=== PATIENT | female | born 1960 | race Caucasian/White ===

== ENCOUNTER 2021-07-22 16:01 | Inpatient (IN) | payer MEDICAID, OTHER ==
[~2021-07-22] VITALS: Ht 175.3 cm; Wt 82.9 kg
[2021-07-22 16:55] LABS: Albumin 3.1 g/dL (3.4-5.0); Calcium 8.5 mg/dL (8.5-10.1); Potassium 3.6 mmol/L (3.5-5.1)
[2021-07-22 17:01] LABS: Bilirubin, Total 1.3 mg/dL (0.2-1.0); Total Protein 8.6 g/dL (6.4-8.2)
[2021-07-22 17:08] LABS: Eosinophils # (auto) 0 10 ^3/uL (0-0.8); Hemoglobin 15.9 g/dL (12.2-16.2); Monocytes # (auto) 0.5 10 ^3/uL (0-1.3)
[2021-07-22 17:09] LABS: Basophils # (auto) 0 10 ^3/uL (0-0.2); Basophils % (auto) 0.2 % (0.0-2.0); Hematocrit 46.4 % (36.0-46.0); Lymphocytes # (auto) 0.8 10 ^3/uL (0.4-5.4); Lymphocytes % (auto) 5.1 % (10.0-50.0); Mean Corpuscular Hemoglobin 34.8 pg (28.0-32.0); Mean Corpuscular Hgb Conc. 34.2 g/dL (32.0-36.0); Mean Corpuscular Volume 101.9 fL (80.0-100.0); Monocytes % (auto) 3.3 % (0.0-12.0); Neutrophils # (auto) 13.6 10 ^3/uL (1.6-8.6); Neutrophils % (auto) 91.4 % (37.0-80.0); Red Blood Cells 4.56 10^6/uL (4.0-5.20); Red Cell Distribution Width 15.2 % (11.8-14.3); White Blood Cell 14.9 10^3/uL (4.4-10.8)
[2021-07-22] MEDS ORDERED: cefTRIAXone 1GM/50ML D5W 50 ML IV ONE (18:00)
[2021-07-22] MEDS ORDERED: NITROGLYCERIN 0.4 MG SL TAB SL PRN (18:30)
[2021-07-22] MEDS ORDERED: MORPHINE SULFATE INJECTION 2 MG/ML SYRG IV PRN (18:30)
[2021-07-22] MEDS ORDERED: ASPirin 81 mg TAB PO ONE (18:45)
[2021-07-22] MEDS ORDERED: LACTULOSE 20Gm/30ML SOLN PO PRN (18:45)
[2021-07-22] MEDS ORDERED: traMADol HCL 50 MG TAB PO PRN (18:45)
[2021-07-22] MEDS ORDERED: ALBUTEROL SULF 2.5 MG/0.5ML(0.5%) NEB SOLN NEB PRN (18:45)
[2021-07-22 19:27] LABS: Amylase 11 U/L (25-115); Lipase 28 U/L (73-393)
[2021-07-22 19:42] LABS: CRP High Sensitivity > 19.0 mg/dL (< 0.3)
[2021-07-22] MEDS: SODIUM CHLORIDE 0.9% 1,000 ML IV SCH (20:46)
[2021-07-22] MEDS: ATORVASTATIN 20 MG TAB PO SCH (22:43)
[2021-07-22] MEDS: CLINDAMYCIN 600MG IV 50 ML IV SCH (22:43)
[2021-07-22] MEDS: ENOXAPARIN SOD 80 MG/0.8ML SYRINGE SC SCH (22:44)
[2021-07-22] MEDS: METOPROLOL TARTRATE 25 MG TAB PO SCH (22:44)
[2021-07-22] MEDS: ACETAMINOPHEN 500 MG TAB PO PRN (23:36)
[2021-07-22] MEDS: PROMETHAZINE HCL 25 MG/ML 1ML IV PRN (23:37)
[2021-07-23] MEDS: IPRATROPIUM BROM 0.5 MG/2.5ML INH SOL NEB SCH ×4 (01:39→18:44)
[2021-07-23] MEDS: ALBUTEROL SULF 2.5 MG/0.5ML(0.5%) NEB SOLN NEB SCH ×4 (01:39→19:05)
[2021-07-23 01:46] VITALS: BP 92/51
[2021-07-23] MEDS ORDERED: ALBUTEROL SULF 2.5 MG/0.5ML(0.5%) NEB SOLN NEB ONE (04:45)
[2021-07-23] MEDS ORDERED: IPRATROPIUM BROM 0.5 MG/2.5ML INH SOL NEB ONE (04:45)
[2021-07-23 06:51] LABS: Hemoglobin 14.5 g/dL (12.2-16.2)
[2021-07-23 06:53] LABS: Hematocrit 42.3 % (36.0-46.0); Mean Corpuscular Hemoglobin 35.4 pg (28.0-32.0); Mean Corpuscular Hgb Conc. 34.3 g/dL (32.0-36.0); Red Cell Distribution Width 14.9 % (11.8-14.3); White Blood Cell 9.7 10^3/uL (4.4-10.8)
[2021-07-23] MEDS: CLINDAMYCIN 600MG IV 50 ML IV SCH ×2 (06:55→14:47)
[2021-07-23 07:02] LABS: Basophils % (manual) 0 (0.0-2.0); Blast Cells 0; Eosinophils % (manual) 0 (0-7); Metamyelocytes % 0; Myelocytes % 0; Promyelocytes % 0; Reactive Lymphocytes 0
[2021-07-23 07:07] LABS: Potassium 3.4 mmol/L (3.5-5.1)
[2021-07-23] MEDS: ACETAMINOPHEN 500 MG TAB PO PRN (07:07)
[2021-07-23 07:18] LABS: Albumin 2.4 g/dL (3.4-5.0); BUN/Creatinine Ratio 16.8; Bilirubin, Total 0.8 mg/dL (0.2-1.0); Calcium 7.8 mg/dL (8.5-10.1); Total Protein 7.6 g/dL (6.4-8.2)
[2021-07-23 07:37] LABS: Band Neutrophils % (manual) 6; Lymphocytes % (manual) 7 (10.0-50.0); Monocytes % (manual) 5 (0-12)
[2021-07-23] MEDS: SODIUM CHLORIDE 0.9% 1,000 ML IV SCH ×2 (08:28→22:39)
[2021-07-23] MEDS: ASPirin 81 mg TAB PO SCH (11:08)
[2021-07-23] MEDS: METOPROLOL TARTRATE 25 MG TAB PO SCH ×2 (11:08→22:39)
[2021-07-23] MEDS: levoFLOXacin 500MG 100 ML IV SCH (11:08)
[2021-07-23] MEDS: ENOXAPARIN SOD 80 MG/0.8ML SYRINGE SC SCH ×2 (11:09→22:39)
[2021-07-23] MEDS: PANTOPRAZOLE 40 MG TAB PO SCH (11:09)
[2021-07-23] MEDS: NITROGLYCERIN 0.2MG/HR TOPICAL PATCH TD SCH (11:30)
[2021-07-23] MEDS ORDERED: LOPERAMIDE HCL 2 MG CAP PO ONE (16:15)
[2021-07-23] MEDS ORDERED: metroNIDAZOLE 500MG/100ML 100 ML IV ONE (16:30)
[2021-07-23] MEDS: metroNIDAZOLE 500MG/100ML 100 ML IV SCH (17:26)
[2021-07-23] MEDS ORDERED: methylPREDNISolone SOD SUCC 125 MG/2 ML VL IV ONE (17:30)
[2021-07-23] MEDS: diphenhdrAMINE HCL 50 MG/1 ML VL IV PRN (17:40)
[2021-07-23] MEDS ORDERED: IOHEXOL 350 MG/ML 100ML IJ ONE (17:57)
[2021-07-23] MEDS: ATORVASTATIN 20 MG TAB PO SCH (22:38)
[2021-07-24] MEDS: ALBUTEROL SULF 2.5 MG/0.5ML(0.5%) NEB SOLN NEB SCH ×5 (00:50→23:51)
[2021-07-24] MEDS: IPRATROPIUM BROM 0.5 MG/2.5ML INH SOL NEB SCH ×5 (00:50→23:51)
[2021-07-24] MEDS: metroNIDAZOLE 500MG/100ML 100 ML IV SCH ×3 (00:56→16:40)
[2021-07-24] MEDS: SODIUM CHLORIDE 0.9% 1,000 ML IV SCH ×3 (03:51→21:14)
[2021-07-24] MEDS: METOPROLOL TARTRATE 25 MG TAB PO SCH ×2 (09:48→21:13)
[2021-07-24] MEDS: NITROGLYCERIN 0.2MG/HR TOPICAL PATCH TD SCH (09:49)
[2021-07-24] MEDS: PANTOPRAZOLE 40 MG TAB PO SCH ×2 (10:57→21:12)
[2021-07-24] MEDS: ASPirin 81 mg TAB PO SCH (10:57)
[2021-07-24] MEDS: ENOXAPARIN SOD 80 MG/0.8ML SYRINGE SC SCH ×2 (10:58→21:11)
[2021-07-24] MEDS: levoFLOXacin 500MG 100 ML IV SCH (10:58)
[2021-07-24] MEDS: SUCRALFATE 1 GM/10 ML ORAL SUSP PO SCH ×3 (13:30→21:12)
[2021-07-24] MEDS: ATORVASTATIN 20 MG TAB PO SCH (21:12)
[2021-07-24 23:05] VITALS: BP 107/71
[2021-07-25] MEDS: metroNIDAZOLE 500MG/100ML 100 ML IV SCH ×2 (00:25→08:30)
[2021-07-25] MEDS ORDERED: AMIT10TA8 PO (00:34)
[2021-07-25] MEDS ORDERED: FLUT250M2 IN (00:34)
[2021-07-25] MEDS ORDERED: DexAMETHasone SOD PHOS 10MG/1ML VIAL INJ IV ONE (03:30)
[2021-07-25] MEDS: ACETAMINOPHEN 500 MG TAB PO PRN (04:32)
[2021-07-25 05:00] VITALS: BP 137/71
[2021-07-25] MEDS: SODIUM CHLORIDE 0.9% 1,000 ML IV SCH ×4 (06:19→22:54)
[2021-07-25] MEDS: IPRATROPIUM BROM 0.5 MG/2.5ML INH SOL NEB SCH ×5 (06:35→22:35)
[2021-07-25] MEDS: ALBUTEROL SULF 2.5 MG/0.5ML(0.5%) NEB SOLN NEB SCH ×5 (06:35→22:00)
[2021-07-25] MEDS: SUCRALFATE 1 GM/10 ML ORAL SUSP PO SCH ×4 (06:54→21:25)
[2021-07-25 09:00] VITALS: BP 108/93
[2021-07-25] MEDS: SILDENAFIL CITRATE 20 MG TAB PO SCH ×2 (09:16→14:00)
[2021-07-25] MEDS: ASPirin 81 mg TAB PO SCH (09:17)
[2021-07-25] MEDS: PANTOPRAZOLE 40 MG TAB PO SCH ×2 (09:18→21:26)
[2021-07-25] MEDS: ENOXAPARIN SOD 80 MG/0.8ML SYRINGE SC SCH ×2 (09:18→21:27)
[2021-07-25] MEDS: NITROGLYCERIN 0.2MG/HR TOPICAL PATCH TD SCH (09:20)
[2021-07-25] MEDS: METOPROLOL TARTRATE 25 MG TAB PO SCH ×2 (09:20→21:26)
[2021-07-25] MEDS: levoFLOXacin 500MG 100 ML IV SCH (10:00)
[2021-07-25] MEDS ORDERED: PNEUMOCOCCAL VACC POLYS 25 MCG/0.5 ML VIAL IM ONE (10:00)
[2021-07-25 13:00] VITALS: BP 109/64
[2021-07-25] MEDS ORDERED: LOPERAMIDE HCL 2 MG CAP PO PRN (13:45)
[2021-07-25] MEDS ORDERED: METOPROLOL TARTRATE 1MG/1ML-5ML VIAL IV ONE ×2 (15:06→15:15)
[2021-07-25 17:00] VITALS: BP 122/65
[2021-07-25] MEDS ORDERED: AMIODARONE HCL 200 MG TAB ONE (17:23)
[2021-07-25] MEDS ORDERED: DIGOXIN (250MCG/ML) 2 ML AMPULE ONE (17:23)
[2021-07-25] MEDS ORDERED: DIGOXIN (250MCG/ML) 2 ML AMPULE IV ONE ×2 (17:30→19:00)
[2021-07-25] MEDS: ATORVASTATIN 20 MG TAB PO SCH (21:25)
[2021-07-25] MEDS: AMIODARONE HCL 200 MG TAB PO SCH (21:25)
[2021-07-25] MEDS: TEMAZEPAM 15 MG CAP PO PRN (21:27)
[2021-07-25 22:00] VITALS: BP 129/68
[2021-07-26] VITALS (11 sets, daily range): BP systolic 87–114; BP diastolic 50–75
[2021-07-26] MEDS: diphenhdrAMINE HCL 50 MG/1 ML VL IV PRN (01:49)
[2021-07-26] MEDS: IPRATROPIUM BROM 0.5 MG/2.5ML INH SOL NEB SCH ×6 (02:00→22:33)
[2021-07-26] MEDS: ALBUTEROL SULF 2.5 MG/0.5ML(0.5%) NEB SOLN NEB SCH ×6 (02:00→22:33)
[2021-07-26] MEDS: SUCRALFATE 1 GM/10 ML ORAL SUSP PO SCH ×4 (05:20→21:56)
[2021-07-26] MEDS: AMIODARONE HCL 200 MG TAB PO SCH ×3 (05:20→21:58)
[2021-07-26] MEDS: SILDENAFIL CITRATE 20 MG TAB PO SCH ×3 (08:14→22:16)
[2021-07-26] MEDS: MORPHINE SULFATE INJECTION 2 MG/ML SYRG IV PRN (08:16)
[2021-07-26] MEDS: PROMETHAZINE HCL 25 MG/ML 1ML IV PRN (08:16)
[2021-07-26] MEDS: ENOXAPARIN SOD 80 MG/0.8ML SYRINGE SC SCH ×2 (10:00→22:04)
[2021-07-26 10:33] LABS: INR 1.05 (0.9-1.15); Partial Thromboplastin Time 33.6 sec (23.6-33.0)
[2021-07-26] MEDS: DexAMETHasone SOD PHOS 10MG/1ML VIAL INJ IV SCH (10:53)
[2021-07-26] MEDS: ASPirin 81 mg TAB PO SCH (10:54)
[2021-07-26] MEDS: levoFLOXacin 500MG 100 ML IV SCH (10:54)
[2021-07-26] MEDS: METOPROLOL TARTRATE 25 MG TAB PO SCH ×2 (10:55→22:17)
[2021-07-26] MEDS: PANTOPRAZOLE 40 MG TAB PO SCH ×2 (10:56→21:59)
[2021-07-26] MEDS: SODIUM CHLORIDE 0.9% 1,000 ML IV SCH ×2 (11:47→19:30)
[2021-07-26] MEDS ORDERED: LIDOCAINE 2%HCL (LOCAL ANESTH.) INJ 20ML MDV ONE ×3 (15:32→16:18)
[2021-07-26] MEDS ORDERED: MIDAZOLAM HCL 2MG/2ML 2ml VIAL (1mg/ml) ONE (15:32)
[2021-07-26] MEDS ORDERED: fentaNYL CITRATE 100 MCG/2 ML VL ONE (15:32)
[2021-07-26] MEDS ORDERED: ANGIOMAX 250 MG VIAL IV ONE (15:32)
[2021-07-26] MEDS ORDERED: IOHEXOL 350 MG/ML 100ML IJ ONE (15:33)
[2021-07-26] MEDS ORDERED: SODIUM CHL 0.9% 0 ML ONE (15:33)
[2021-07-26] MEDS ORDERED: SILDENAFIL CITRATE 20 MG TAB PO SCH (20:00)
[2021-07-26] MEDS: ATORVASTATIN 20 MG TAB PO SCH (21:59)
[2021-07-26] MEDS: TEMAZEPAM 15 MG CAP PO PRN (22:05)
[2021-07-27] MEDS: ALBUTEROL SULF 2.5 MG/0.5ML(0.5%) NEB SOLN NEB SCH ×6 (02:30→21:44)
[2021-07-27] MEDS: IPRATROPIUM BROM 0.5 MG/2.5ML INH SOL NEB SCH ×6 (02:30→21:44)
[2021-07-27] MEDS: SODIUM CHLORIDE 0.9% 1,000 ML IV SCH ×2 (03:30→06:25)
[2021-07-27 05:00] VITALS: BP 95/54
[2021-07-27] MEDS: AMIODARONE HCL 200 MG TAB PO SCH ×3 (06:12→21:53)
[2021-07-27] MEDS: SUCRALFATE 1 GM/10 ML ORAL SUSP PO SCH ×4 (06:12→21:52)
[2021-07-27 06:38] LABS: Basophils # (auto) 0 10 ^3/uL (0-0.2); Eosinophils # (auto) 0 10 ^3/uL (0-0.8); Lymphocytes # (auto) 0.3 10 ^3/uL (0.4-5.4); Monocytes # (auto) 0.3 10 ^3/uL (0-1.3)
[2021-07-27 06:41] LABS: Basophils % (auto) 0.1 % (0.0-2.0); Hematocrit 34.7 % (36.0-46.0); Lymphocytes % (auto) 6.4 % (10.0-50.0); Mean Corpuscular Hemoglobin 34.9 pg (28.0-32.0); Mean Corpuscular Hgb Conc. 34.7 g/dL (32.0-36.0); Mean Corpuscular Volume 100.5 fL (80.0-100.0); Monocytes % (auto) 6.1 % (0.0-12.0); Neutrophils # (auto) 4.1 10 ^3/uL (1.6-8.6); Neutrophils % (auto) 87.4 % (37.0-80.0); Red Blood Cells 3.46 10^6/uL (4.0-5.20); Red Cell Distribution Width 15.7 % (11.8-14.3); White Blood Cell 4.7 10^3/uL (4.4-10.8)
[2021-07-27 07:37] LABS: Albumin 1.6 g/dL (3.4-5.0); BUN/Creatinine Ratio 37.3; Bilirubin, Total 0.5 mg/dL (0.2-1.0); Calcium 7.3 mg/dL (8.5-10.1); Total Protein 5.8 g/dL (6.4-8.2)
[2021-07-27] MEDS: SILDENAFIL CITRATE 20 MG TAB PO SCH ×3 (08:13→21:54)
[2021-07-27 09:00] VITALS: BP 94/53
[2021-07-27] MEDS: METOPROLOL TARTRATE 25 MG TAB PO SCH ×2 (10:00→22:00)
[2021-07-27] MEDS: PANTOPRAZOLE 40 MG TAB PO SCH ×2 (11:04→21:52)
[2021-07-27] MEDS: ENOXAPARIN SOD 80 MG/0.8ML SYRINGE SC SCH ×2 (11:04→21:53)
[2021-07-27] MEDS: levoFLOXacin 500MG 100 ML IV SCH (11:04)
[2021-07-27] MEDS: DexAMETHasone SOD PHOS 10MG/1ML VIAL INJ IV SCH (11:04)
[2021-07-27] MEDS: ASPirin 81 mg TAB PO SCH (11:04)
[2021-07-27 13:00] VITALS: BP 99/50
[2021-07-27 17:00] VITALS: BP 95/54
[2021-07-27] MEDS: LORazepam 0.5 MG TAB PO PRN (21:53)
[2021-07-27] MEDS: ATORVASTATIN 20 MG TAB PO SCH (21:53)
[2021-07-27 22:00] VITALS: BP 120/67
[2021-07-28] MEDS: TEMAZEPAM 15 MG CAP PO PRN ×2 (00:10→23:24)
[2021-07-28] MEDS: ALBUTEROL SULF 2.5 MG/0.5ML(0.5%) NEB SOLN NEB SCH ×6 (02:06→23:06)
[2021-07-28] MEDS: IPRATROPIUM BROM 0.5 MG/2.5ML INH SOL NEB SCH ×6 (02:06→23:06)
[2021-07-28 05:30] VITALS: BP 101/50
[2021-07-28] MEDS: AMIODARONE HCL 200 MG TAB PO SCH ×3 (06:00→21:28)
[2021-07-28] MEDS: SUCRALFATE 1 GM/10 ML ORAL SUSP PO SCH ×4 (06:40→21:28)
[2021-07-28 09:00] VITALS: BP 97/43
[2021-07-28] MEDS: PANTOPRAZOLE 40 MG TAB PO SCH ×2 (09:21→21:29)
[2021-07-28] MEDS: SILDENAFIL CITRATE 20 MG TAB PO SCH ×3 (09:21→21:28)
[2021-07-28] MEDS: ASPirin 81 mg TAB PO SCH (09:21)
[2021-07-28] MEDS: ENOXAPARIN SOD 80 MG/0.8ML SYRINGE SC SCH ×2 (09:21→21:29)
[2021-07-28] MEDS: DexAMETHasone SOD PHOS 10MG/1ML VIAL INJ IV SCH (09:22)
[2021-07-28] MEDS: levoFLOXacin 500MG 100 ML IV SCH (09:22)
[2021-07-28] MEDS: METOPROLOL TARTRATE 25 MG TAB PO SCH ×2 (09:58→22:00)
[2021-07-28] MEDS: LORazepam 0.5 MG TAB PO PRN (11:27)
[2021-07-28] MEDS: ACETYLCYSTEINE 10 %(100MG/ML) SOL 4ML NEB SCH ×3 (14:00→23:07)
[2021-07-28 17:00] VITALS: BP 105/67
[2021-07-28] MEDS: ATORVASTATIN 20 MG TAB PO SCH (21:28)
[2021-07-28 22:00] VITALS: BP 102/55
[2021-07-29 01:39] VITALS: BP 102/55
[2021-07-29] MEDS: IPRATROPIUM BROM 0.5 MG/2.5ML INH SOL NEB SCH ×6 (02:41→22:41)
[2021-07-29] MEDS: ALBUTEROL SULF 2.5 MG/0.5ML(0.5%) NEB SOLN NEB SCH ×6 (02:41→22:42)
[2021-07-29] MEDS: ACETYLCYSTEINE 10 %(100MG/ML) SOL 4ML NEB SCH ×6 (02:41→22:41)
[2021-07-29 05:00] VITALS: BP 100/59
[2021-07-29] MEDS: AMIODARONE HCL 200 MG TAB PO SCH ×3 (06:05→22:07)
[2021-07-29] MEDS: SUCRALFATE 1 GM/10 ML ORAL SUSP PO SCH ×4 (06:05→22:06)
[2021-07-29] MEDS: METOPROLOL TARTRATE 25 MG TAB PO SCH (08:58)
[2021-07-29 09:00] VITALS: BP 96/61
[2021-07-29] MEDS: PANTOPRAZOLE 40 MG TAB PO SCH ×2 (09:00→22:07)
[2021-07-29] MEDS: ENOXAPARIN SOD 80 MG/0.8ML SYRINGE SC SCH ×2 (09:00→22:07)
[2021-07-29] MEDS: ASPirin 81 mg TAB PO SCH (09:00)
[2021-07-29] MEDS: DexAMETHasone SOD PHOS 10MG/1ML VIAL INJ IV SCH (09:00)
[2021-07-29] MEDS: levoFLOXacin 500MG 100 ML IV SCH (09:00)
[2021-07-29] MEDS: SILDENAFIL CITRATE 20 MG TAB PO SCH ×3 (09:01→20:27)
[2021-07-29 13:00] VITALS: BP 99/52
[2021-07-29] MEDS: MORPHINE SULFATE INJECTION 2 MG/ML SYRG IV PRN (15:50)
[2021-07-29 17:00] VITALS: BP 95/55
[2021-07-29 22:00] VITALS: BP 102/58
[2021-07-29] MEDS: ATORVASTATIN 20 MG TAB PO SCH (22:07)
[2021-07-29] MEDS: LORazepam 0.5 MG TAB PO PRN (22:08)
[2021-07-30] MEDS: TEMAZEPAM 15 MG CAP PO PRN (00:10)
[2021-07-30] MEDS: ACETYLCYSTEINE 10 %(100MG/ML) SOL 4ML NEB SCH ×6 (02:15→21:49)
[2021-07-30] MEDS: ALBUTEROL SULF 2.5 MG/0.5ML(0.5%) NEB SOLN NEB SCH ×6 (02:15→21:49)
[2021-07-30] MEDS: IPRATROPIUM BROM 0.5 MG/2.5ML INH SOL NEB SCH ×6 (02:15→21:49)
[2021-07-30] MEDS: MORPHINE SULFATE INJECTION 2 MG/ML SYRG IV PRN ×2 (02:59→17:59)
[2021-07-30 05:00] VITALS: BP 91/53
[2021-07-30] MEDS: SUCRALFATE 1 GM/10 ML ORAL SUSP PO SCH ×4 (06:25→21:35)
[2021-07-30] MEDS: AMIODARONE HCL 200 MG TAB PO SCH ×3 (06:26→21:35)
[2021-07-30] MEDS: SILDENAFIL CITRATE 20 MG TAB PO SCH ×3 (08:00→20:00)
[2021-07-30 09:00] VITALS: BP 99/47
[2021-07-30] MEDS: ENOXAPARIN SOD 80 MG/0.8ML SYRINGE SC SCH ×2 (10:09→22:00)
[2021-07-30] MEDS: ASPirin 81 mg TAB PO SCH (10:09)
[2021-07-30] MEDS: levoFLOXacin 500MG 100 ML IV SCH (10:09)
[2021-07-30] MEDS: PANTOPRAZOLE 40 MG TAB PO SCH ×2 (10:09→21:35)
[2021-07-30] MEDS: DexAMETHasone SOD PHOS 10MG/1ML VIAL INJ IV SCH (10:11)
[2021-07-30] MEDS ORDERED: POTASSIUM CHL 20 Meq TABLET PO ONE (11:00)
[2021-07-30] MEDS: ACETAMINOPHEN 500 MG TAB PO PRN (12:55)
[2021-07-30 13:00] VITALS: BP 93/58
[2021-07-30 17:24] VITALS: BP 105/61
[2021-07-30] MEDS: ATORVASTATIN 20 MG TAB PO SCH (21:35)
[2021-07-30 22:00] VITALS: BP 87/56
[2021-07-30] MEDS ORDERED: ALBUMIN 5% 250 ML IV ONE (22:30)
[2021-07-30 23:07] LABS: BUN/Creatinine Ratio 19.5; Calcium 7.3 mg/dL (8.5-10.1); Potassium 3.5 mmol/L (3.5-5.1)
[2021-07-30 23:24] LABS: Hemoglobin 8.1 g/dL (12.2-16.2); Mean Corpuscular Volume 101.3 fL (80.0-100.0)
[2021-07-30 23:27] LABS: Mean Corpuscular Hemoglobin 34.2 pg (28.0-32.0); Mean Corpuscular Hgb Conc. 33.8 g/dL (32.0-36.0); Red Blood Cells 2.36 10^6/uL (4.0-5.20); Red Cell Distribution Width 15.5 % (11.8-14.3)
[2021-07-30 23:34] LABS: Basophils % (manual) 0 (0.0-2.0); Blast Cells 0; Eosinophils % (manual) 0 (0-7); Metamyelocytes % 0; Promyelocytes % 0; Reactive Lymphocytes 0
[2021-07-31] VITALS (10 sets, daily range): BP systolic 94–134; BP diastolic 61–87
[2021-07-31 00:18] LABS: Band Neutrophils % (manual) 14; Lymphocytes % (manual) 5 (10.0-50.0); Monocytes % (manual) 4 (0-12); Myelocytes % 1
[2021-07-31] MEDS: ACETYLCYSTEINE 10 %(100MG/ML) SOL 4ML NEB SCH ×6 (02:00→23:07)
[2021-07-31] MEDS: IPRATROPIUM BROM 0.5 MG/2.5ML INH SOL NEB SCH ×6 (02:00→23:05)
[2021-07-31] MEDS: ALBUTEROL SULF 2.5 MG/0.5ML(0.5%) NEB SOLN NEB SCH ×6 (02:00→23:05)
[2021-07-31 02:38] LABS: Hematocrit 21.3 % (36.0-46.0); Hemoglobin 7.3 g/dL (12.2-16.2)
[2021-07-31 06:06] LABS: INR 1.05 (0.9-1.15)
[2021-07-31] MEDS: AMIODARONE HCL 200 MG TAB PO SCH ×3 (06:47→22:11)
[2021-07-31] MEDS: SUCRALFATE 1 GM/10 ML ORAL SUSP PO SCH ×4 (06:48→22:11)
[2021-07-31] MEDS: ENOXAPARIN SOD 80 MG/0.8ML SYRINGE SC SCH (08:06)
[2021-07-31] MEDS: levoFLOXacin 500MG 100 ML IV SCH (08:06)
[2021-07-31] MEDS: DexAMETHasone SOD PHOS 10MG/1ML VIAL INJ IV SCH (08:06)
[2021-07-31] MEDS: PANTOPRAZOLE 40 MG TAB PO SCH ×2 (08:06→22:11)
[2021-07-31] MEDS: ASPirin 81 mg TAB PO SCH (08:07)
[2021-07-31] MEDS: MORPHINE SULFATE INJECTION 2 MG/ML SYRG IV PRN ×2 (08:32→13:10)
[2021-07-31] MEDS: SILDENAFIL CITRATE 20 MG TAB PO SCH ×3 (10:31→22:14)
[2021-07-31 11:20] LABS: Mean Corpuscular Volume 100.8 fL (80.0-100.0)
[2021-07-31 11:22] LABS: Hematocrit 19.7 % (36.0-46.0); Mean Corpuscular Hemoglobin 34.5 pg (28.0-32.0); Mean Corpuscular Hgb Conc. 34.3 g/dL (32.0-36.0); Red Blood Cells 1.96 10^6/uL (4.0-5.20); Red Cell Distribution Width 15.6 % (11.8-14.3); White Blood Cell 24.1 10^3/uL (4.4-10.8)
[2021-07-31 11:34] LABS: Hemoglobin 6.8 g/dL (12.2-16.2)
[2021-07-31 11:36] LABS: Basophils % (manual) 0 (0.0-2.0); Blast Cells 0; Eosinophils % (manual) 0 (0-7); Metamyelocytes % 0; Myelocytes % 0; Promyelocytes % 0; Reactive Lymphocytes 0
[2021-07-31 13:55] LABS: Band Neutrophils % (manual) 2; Lymphocytes % (manual) 8 (10.0-50.0); Monocytes % (manual) 2 (0-12)
[2021-07-31 15:45] LABS: Hematocrit 24.7 % (36.0-46.0); Hemoglobin 8.7 g/dL (12.2-16.2)
[2021-07-31] MEDS: PROMETHAZINE HCL 25 MG/ML 1ML IV PRN (16:19)
[2021-07-31] MEDS: APIXABAN 2.5 MG TAB PO SCH (19:37)
[2021-07-31] MEDS: ATORVASTATIN 20 MG TAB PO SCH (22:11)
[2021-07-31] MEDS: TEMAZEPAM 15 MG CAP PO PRN (22:11)
[2021-08-01 01:49] VITALS: BP 128/71
[2021-08-01] MEDS: ALBUTEROL SULF 2.5 MG/0.5ML(0.5%) NEB SOLN NEB SCH ×6 (02:00→21:56)
[2021-08-01] MEDS: IPRATROPIUM BROM 0.5 MG/2.5ML INH SOL NEB SCH ×6 (02:00→21:56)
[2021-08-01] MEDS: ACETYLCYSTEINE 10 %(100MG/ML) SOL 4ML NEB SCH ×6 (02:00→22:00)
[2021-08-01] MEDS: PROMETHAZINE HCL 25 MG/ML 1ML IV PRN (02:28)
[2021-08-01 05:01] VITALS: BP 127/72
[2021-08-01] MEDS: AMIODARONE HCL 200 MG TAB PO SCH ×3 (06:00→22:26)
[2021-08-01 06:04] LABS: Potassium 3.9 mmol/L (3.5-5.1)
[2021-08-01 06:21] LABS: Albumin 2.5 g/dL (3.4-5.0); BUN/Creatinine Ratio 20.7; Calcium 7.2 mg/dL (8.5-10.1); Total Protein 6.2 g/dL (6.4-8.2)
[2021-08-01] MEDS: SUCRALFATE 1 GM/10 ML ORAL SUSP PO SCH ×4 (06:48→22:25)
[2021-08-01] MEDS: DexAMETHasone SOD PHOS 10MG/1ML VIAL INJ IV SCH (08:46)
[2021-08-01] MEDS: HYDROmorphone HCL 2 MG/ML VL IV PRN ×3 (08:46→22:29)
[2021-08-01] MEDS: SILDENAFIL CITRATE 20 MG TAB PO SCH ×3 (08:46→20:31)
[2021-08-01] MEDS: ASPirin 81 mg TAB PO SCH (08:47)
[2021-08-01] MEDS: levoFLOXacin 500MG 100 ML IV SCH (08:47)
[2021-08-01] MEDS: PANTOPRAZOLE 40 MG TAB PO SCH ×2 (08:48→22:26)
[2021-08-01] MEDS: APIXABAN 2.5 MG TAB PO SCH (08:48)
[2021-08-01 08:49] LABS: Hematocrit 31.3 % (36.0-46.0); Hemoglobin 10.8 g/dL (12.2-16.2); Mean Corpuscular Hgb Conc. 34.6 g/dL (32.0-36.0); Mean Corpuscular Volume 95.4 fL (80.0-100.0); Red Blood Cells 3.28 10^6/uL (4.0-5.20); Red Cell Distribution Width 15.6 % (11.8-14.3); White Blood Cell 20.8 10^3/uL (4.4-10.8)
[2021-08-01 08:55] LABS: Basophils % (manual) 0 (0.0-2.0); Blast Cells 0; Eosinophils % (manual) 0 (0-7); Promyelocytes % 0; Reactive Lymphocytes 0
[2021-08-01 09:16] LABS: Band Neutrophils % (manual) 1; Lymphocytes % (manual) 12 (10.0-50.0); Metamyelocytes % 2; Monocytes % (manual) 5 (0-12); Myelocytes % 5
[2021-08-01 13:25] VITALS: BP 126/70
[2021-08-01] MEDS ORDERED: FUROSEMIDE 40 MG/4 ML VIAL IV ONE (14:00)
[2021-08-01 17:47] VITALS: BP 98/51
[2021-08-01 20:00] VITALS: BP 90/43
[2021-08-01 22:00] VITALS: BP 90/43
[2021-08-01] MEDS: ATORVASTATIN 20 MG TAB PO SCH (22:26)
[2021-08-01] MEDS: TEMAZEPAM 15 MG CAP PO PRN (22:46)
[2021-08-02] VITALS (7 sets, daily range): BP systolic 85–98; BP diastolic 45–54
[2021-08-02] MEDS: IPRATROPIUM BROM 0.5 MG/2.5ML INH SOL NEB SCH ×6 (01:57→22:25)
[2021-08-02] MEDS: ALBUTEROL SULF 2.5 MG/0.5ML(0.5%) NEB SOLN NEB SCH ×6 (01:57→22:25)
[2021-08-02] MEDS: HYDROmorphone HCL 2 MG/ML VL IV PRN ×3 (03:41→20:19)
[2021-08-02 06:32] LABS: Basophils # (auto) 0.1 10 ^3/uL (0-0.2); Basophils % (auto) 0.5 % (0.0-2.0); Eosinophils # (auto) 0 10 ^3/uL (0-0.8); Eosinophils % (auto) 0.3 % (0.0-7.0); Hematocrit 25.2 % (36.0-46.0); Lymphocytes # (auto) 0.8 10 ^3/uL (0.4-5.4); Lymphocytes % (auto) 6.9 % (10.0-50.0); Mean Corpuscular Hemoglobin 33.7 pg (28.0-32.0); Mean Corpuscular Hgb Conc. 35.6 g/dL (32.0-36.0); Mean Corpuscular Volume 94.7 fL (80.0-100.0); Monocytes # (auto) 0.8 10 ^3/uL (0-1.3); Monocytes % (auto) 7.3 % (0.0-12.0); Neutrophils # (auto) 9.8 10 ^3/uL (1.6-8.6); Nucleated Red Blood Cells % 0.1 %; Red Blood Cells 2.66 10^6/uL (4.0-5.20); Red Cell Distribution Width 16.2 % (11.8-14.3); White Blood Cell 11.5 10^3/uL (4.4-10.8)
[2021-08-02] MEDS: ACETYLCYSTEINE 10 %(100MG/ML) SOL 4ML NEB SCH ×2 (06:43→10:00)
[2021-08-02 06:50] LABS: Albumin 2.3 g/dL (3.4-5.0); Calcium 7.2 mg/dL (8.5-10.1); Potassium 3.3 mmol/L (3.5-5.1)
[2021-08-02 06:56] LABS: BUN/Creatinine Ratio 24.7; Total Protein 5.8 g/dL (6.4-8.2)
[2021-08-02] MEDS: AMIODARONE HCL 200 MG TAB PO SCH ×3 (07:00→21:47)
[2021-08-02] MEDS: SUCRALFATE 1 GM/10 ML ORAL SUSP PO SCH ×4 (07:16→21:47)
[2021-08-02] MEDS: levoFLOXacin 500MG 100 ML IV SCH ×2 (10:00→12:34)
[2021-08-02] MEDS: DexAMETHasone SOD PHOS 10MG/1ML VIAL INJ IV SCH ×2 (10:00→12:34)
[2021-08-02] MEDS: PANTOPRAZOLE 40 MG TAB PO SCH ×2 (10:18→21:47)
[2021-08-02] MEDS: SILDENAFIL CITRATE 20 MG TAB PO SCH ×3 (10:18→20:19)
[2021-08-02] MEDS ORDERED: ALBUMIN 25% 100 ML IV ONE (17:00)
[2021-08-02] MEDS: FUROSEMIDE 40 MG/4 ML VIAL IV SCH (19:41)
[2021-08-02] MEDS: ATORVASTATIN 20 MG TAB PO SCH (21:47)
[2021-08-02] MEDS: TEMAZEPAM 15 MG CAP PO PRN (22:44)
[2021-08-03] MEDS: ALBUTEROL SULF 2.5 MG/0.5ML(0.5%) NEB SOLN NEB SCH ×6 (02:11→22:14)
[2021-08-03] MEDS: IPRATROPIUM BROM 0.5 MG/2.5ML INH SOL NEB SCH ×6 (02:11→22:14)
[2021-08-03] MEDS: HYDROmorphone HCL 2 MG/ML VL IV PRN ×3 (02:49→14:00)
[2021-08-03 05:00] VITALS: BP 92/50
[2021-08-03] MEDS: AMIODARONE HCL 200 MG TAB PO SCH ×3 (05:44→21:58)
[2021-08-03] MEDS: SUCRALFATE 1 GM/10 ML ORAL SUSP PO SCH ×4 (06:28→21:58)
[2021-08-03] MEDS: POTASSIUM CHL 20MEQ/100ML 100 ML IV SCH ×3 (06:32→10:15)
[2021-08-03 07:05] LABS: Basophils # (auto) 0 10 ^3/uL (0-0.2); Basophils % (auto) 0.1 % (0.0-2.0); Eosinophils # (auto) 0 10 ^3/uL (0-0.8); Eosinophils % (auto) 0.1 % (0.0-7.0); Hematocrit 21.8 % (36.0-46.0); Hemoglobin 7.9 g/dL (12.2-16.2); Lymphocytes # (auto) 0.3 10 ^3/uL (0.4-5.4); Lymphocytes % (auto) 2.9 % (10.0-50.0); Mean Corpuscular Hemoglobin 34.5 pg (28.0-32.0); Mean Corpuscular Hgb Conc. 36.1 g/dL (32.0-36.0); Mean Corpuscular Volume 95.5 fL (80.0-100.0); Monocytes # (auto) 0.5 10 ^3/uL (0-1.3); Monocytes % (auto) 6.4 % (0.0-12.0); Neutrophils # (auto) 7.8 10 ^3/uL (1.6-8.6); Neutrophils % (auto) 90.5 % (37.0-80.0); Red Blood Cells 2.28 10^6/uL (4.0-5.20); White Blood Cell 8.6 10^3/uL (4.4-10.8)
[2021-08-03 07:20] LABS: Potassium 3.6 mmol/L (3.5-5.1)
[2021-08-03 07:29] LABS: BUN/Creatinine Ratio 25.4; Calcium 7.7 mg/dL (8.5-10.1)
[2021-08-03 09:00] VITALS: BP 91/55
[2021-08-03] MEDS: FUROSEMIDE 40 MG/4 ML VIAL IV SCH (10:00)
[2021-08-03 13:00] VITALS: BP 90/46
[2021-08-03] MEDS: PANTOPRAZOLE 40 MG TAB PO SCH ×2 (14:00→21:58)
[2021-08-03] MEDS: SILDENAFIL CITRATE 20 MG TAB PO SCH ×3 (14:00→20:00)
[2021-08-03] MEDS: levoFLOXacin 500MG 100 ML IV SCH (14:04)
[2021-08-03] MEDS: DexAMETHasone SOD PHOS 10MG/1ML VIAL INJ IV SCH (14:04)
[2021-08-03] MEDS: LORazepam 0.5 MG TAB PO PRN (16:40)
[2021-08-03 17:00] VITALS: BP 96/49
[2021-08-03] MEDS: ATORVASTATIN 20 MG TAB PO SCH (21:58)
[2021-08-03 22:00] VITALS: BP 94/43
[2021-08-04] MEDS: LORazepam 0.5 MG TAB PO PRN (01:05)
[2021-08-04] MEDS: ALBUTEROL SULF 2.5 MG/0.5ML(0.5%) NEB SOLN NEB SCH ×6 (02:07→22:00)
[2021-08-04] MEDS: IPRATROPIUM BROM 0.5 MG/2.5ML INH SOL NEB SCH ×6 (02:08→22:00)
[2021-08-04 05:00] VITALS: BP 94/50
[2021-08-04] MEDS: AMIODARONE HCL 200 MG TAB PO SCH ×3 (06:00→22:40)
[2021-08-04 06:40] LABS: BUN/Creatinine Ratio 24.5; Calcium 7.7 mg/dL (8.5-10.1); Potassium 3.8 mmol/L (3.5-5.1)
[2021-08-04] MEDS: SUCRALFATE 1 GM/10 ML ORAL SUSP PO SCH ×4 (06:45→22:40)
[2021-08-04] MEDS: SILDENAFIL CITRATE 20 MG TAB PO SCH ×3 (08:26→19:30)
[2021-08-04] MEDS: PANTOPRAZOLE 40 MG TAB PO SCH ×2 (08:26→22:40)
[2021-08-04] MEDS: DexAMETHasone SOD PHOS 10MG/1ML VIAL INJ IV SCH (08:27)
[2021-08-04] MEDS: levoFLOXacin 500MG 100 ML IV SCH (08:27)
[2021-08-04] MEDS: HYDROmorphone HCL 2 MG/ML VL IV PRN (08:47)
[2021-08-04 09:00] VITALS: BP 93/45
[2021-08-04] MEDS: FUROSEMIDE 40 MG/4 ML VIAL IV SCH (10:00)
[2021-08-04 13:00] VITALS: BP 95/50
[2021-08-04 16:57] VITALS: BP 93/51
[2021-08-04 22:00] VITALS: BP 87/47
[2021-08-04] MEDS: ATORVASTATIN 20 MG TAB PO SCH (22:40)
[2021-08-04] MEDS: TEMAZEPAM 15 MG CAP PO PRN (22:40)
[2021-08-05] VITALS (7 sets, daily range): BP systolic 82–116; BP diastolic 45–65
[2021-08-05] MEDS: IPRATROPIUM BROM 0.5 MG/2.5ML INH SOL NEB SCH ×5 (02:00→14:32)
[2021-08-05] MEDS: ALBUTEROL SULF 2.5 MG/0.5ML(0.5%) NEB SOLN NEB SCH ×5 (02:00→14:32)
[2021-08-05 05:01] LABS: Basophils # (auto) 0 10 ^3/uL (0-0.2); Basophils % (auto) 0.2 % (0.0-2.0); Eosinophils # (auto) 0 10 ^3/uL (0-0.8); Eosinophils % (auto) 0.1 % (0.0-7.0); Hematocrit 25.3 % (36.0-46.0); Hemoglobin 8.5 g/dL (12.2-16.2); Lymphocytes # (auto) 0.4 10 ^3/uL (0.4-5.4); Lymphocytes % (auto) 5.4 % (10.0-50.0); Mean Corpuscular Hemoglobin 32.9 pg (28.0-32.0); Mean Corpuscular Hgb Conc. 33.7 g/dL (32.0-36.0); Mean Corpuscular Volume 97.6 fL (80.0-100.0); Monocytes # (auto) 0.6 10 ^3/uL (0-1.3); Neutrophils # (auto) 6.7 10 ^3/uL (1.6-8.6); Neutrophils % (auto) 86.3 % (37.0-80.0); Red Blood Cells 2.59 10^6/uL (4.0-5.20); Red Cell Distribution Width 16.3 % (11.8-14.3); White Blood Cell 7.8 10^3/uL (4.4-10.8)
[2021-08-05 05:21] LABS: Potassium 3.6 mmol/L (3.5-5.1)
[2021-08-05 05:27] LABS: Albumin 2.3 g/dL (3.4-5.0); BUN/Creatinine Ratio 20.4; Calcium 7.8 mg/dL (8.5-10.1)
[2021-08-05 05:30] LABS: Total Protein 5.8 g/dL (6.4-8.2)
[2021-08-05] MEDS: AMIODARONE HCL 200 MG TAB PO SCH ×2 (05:59→14:30)
[2021-08-05] MEDS: SUCRALFATE 1 GM/10 ML ORAL SUSP PO SCH ×4 (06:12→22:15)
[2021-08-05] MEDS: DexAMETHasone SOD PHOS 10MG/1ML VIAL INJ IV SCH (09:02)
[2021-08-05] MEDS: SILDENAFIL CITRATE 20 MG TAB PO SCH ×3 (09:02→20:24)
[2021-08-05] MEDS: levoFLOXacin 500MG 100 ML IV SCH (09:03)
[2021-08-05] MEDS: HYDROmorphone HCL 2 MG/ML VL IV PRN (09:03)
[2021-08-05] MEDS: PANTOPRAZOLE 40 MG TAB PO SCH ×2 (10:00→22:15)
[2021-08-05] MEDS ORDERED: ENOXAPARIN SOD 60 MG/0.6 ML SYRINGE SC ONE (16:15)
[2021-08-05] MEDS ORDERED: HYDROmorphone HCL 2 MG/ML VL IV PRN (22:00)
[2021-08-05] MEDS ORDERED: APIXABAN 5 MG TAB PO SCH ×2 (22:00)
[2021-08-05] MEDS: ALBUTEROL SULF 2.5 MG/0.5ML(0.5%) NEB SOLN NEB PRN (22:09)
[2021-08-05] MEDS: ATORVASTATIN 20 MG TAB PO SCH (22:15)
[2021-08-05] MEDS: LORazepam 0.5 MG TAB PO PRN (23:11)
[2021-08-06] MEDS: AMIODARONE HCL 200 MG TAB PO SCH ×2 (02:30→14:30)
[2021-08-06] MEDS: ALBUTEROL SULF 2.5 MG/0.5ML(0.5%) NEB SOLN NEB PRN ×3 (04:00→10:34)
[2021-08-06 05:00] VITALS: BP 97/50
[2021-08-06 05:09] LABS: Basophils # (auto) 0 10 ^3/uL (0-0.2); Basophils % (auto) 0.1 % (0.0-2.0); Eosinophils # (auto) 0 10 ^3/uL (0-0.8); Eosinophils % (auto) 0.1 % (0.0-7.0); Hematocrit 26.3 % (36.0-46.0); Hemoglobin 8.9 g/dL (12.2-16.2); Lymphocytes # (auto) 0.6 10 ^3/uL (0.4-5.4); Lymphocytes % (auto) 8.3 % (10.0-50.0); Mean Corpuscular Hemoglobin 33.1 pg (28.0-32.0); Mean Corpuscular Hgb Conc. 33.7 g/dL (32.0-36.0); Mean Corpuscular Volume 98.1 fL (80.0-100.0); Monocytes # (auto) 0.6 10 ^3/uL (0-1.3); Monocytes % (auto) 7.8 % (0.0-12.0); Neutrophils # (auto) 6.4 10 ^3/uL (1.6-8.6); Neutrophils % (auto) 83.7 % (37.0-80.0); Red Blood Cells 2.68 10^6/uL (4.0-5.20); Red Cell Distribution Width 16.1 % (11.8-14.3); White Blood Cell 7.6 10^3/uL (4.4-10.8)
[2021-08-06] MEDS ORDERED: ENOXAPARIN SOD 60 MG/0.6 ML SYRINGE SC SCH (06:00)
[2021-08-06] MEDS: SUCRALFATE 1 GM/10 ML ORAL SUSP PO SCH ×4 (06:15→22:14)
[2021-08-06] MEDS: SILDENAFIL CITRATE 20 MG TAB PO SCH ×3 (08:29→21:10)
[2021-08-06] MEDS: PANTOPRAZOLE 40 MG TAB PO SCH ×2 (08:30→22:14)
[2021-08-06 09:00] VITALS: BP 98/48
[2021-08-06 10:59] VITALS: BP 99/58
[2021-08-06] MEDS: traMADol HCL 50 MG TAB PO PRN ×2 (12:00→18:32)
[2021-08-06 13:00] VITALS: BP 92/66
[2021-08-06] MEDS: ENOXAPARIN SOD 60 MG/0.6 ML SYRINGE SC SCH (16:57)
[2021-08-06 17:00] VITALS: BP 93/48
[2021-08-06] MEDS: ALBUTEROL SULF 2.5 MG/0.5ML(0.5%) NEB SOLN NEB SCH ×2 (18:12→22:04)
[2021-08-06] MEDS: LORazepam 0.5 MG TAB PO PRN (20:14)
[2021-08-06 22:00] VITALS: BP 97/59
[2021-08-06] MEDS: ATORVASTATIN 20 MG TAB PO SCH (22:14)
[2021-08-06] MEDS: TEMAZEPAM 15 MG CAP PO PRN (23:00)
[2021-08-07] MEDS: AMIODARONE HCL 200 MG TAB PO SCH ×2 (02:14→14:02)
[2021-08-07] MEDS: ALBUTEROL SULF 2.5 MG/0.5ML(0.5%) NEB SOLN NEB SCH ×5 (02:39→21:57)
[2021-08-07] MEDS: ENOXAPARIN SOD 60 MG/0.6 ML SYRINGE SC SCH ×2 (05:30→17:54)
[2021-08-07 05:36] VITALS: BP 106/47
[2021-08-07 05:56] LABS: Basophils # (auto) 0 10 ^3/uL (0-0.2); Basophils % (auto) 0.1 % (0.0-2.0); Eosinophils # (auto) 0.1 10 ^3/uL (0-0.8); Eosinophils % (auto) 0.9 % (0.0-7.0); Hematocrit 27.2 % (36.0-46.0); Hemoglobin 9.3 g/dL (12.2-16.2); Lymphocytes # (auto) 0.9 10 ^3/uL (0.4-5.4); Lymphocytes % (auto) 12.5 % (10.0-50.0); Mean Corpuscular Hemoglobin 33.3 pg (28.0-32.0); Mean Corpuscular Hgb Conc. 34.1 g/dL (32.0-36.0); Mean Corpuscular Volume 97.6 fL (80.0-100.0); Monocytes # (auto) 0.4 10 ^3/uL (0-1.3); Monocytes % (auto) 5.3 % (0.0-12.0); Neutrophils # (auto) 5.7 10 ^3/uL (1.6-8.6); Neutrophils % (auto) 81.2 % (37.0-80.0); Nucleated Red Blood Cells % 0.2 %; Red Blood Cells 2.79 10^6/uL (4.0-5.20); Red Cell Distribution Width 16.2 % (11.8-14.3)
[2021-08-07] MEDS: SUCRALFATE 1 GM/10 ML ORAL SUSP PO SCH ×4 (06:41→21:54)
[2021-08-07] MEDS: SILDENAFIL CITRATE 20 MG TAB PO SCH ×3 (08:00→19:22)
[2021-08-07 09:00] VITALS: BP 96/53
[2021-08-07] MEDS: PANTOPRAZOLE 40 MG TAB PO SCH ×2 (10:00→21:54)
[2021-08-07 13:00] VITALS: BP 94/58
[2021-08-07] MEDS: traMADol HCL 50 MG TAB PO PRN (16:57)
[2021-08-07 17:00] VITALS: BP 87/49
[2021-08-07] MEDS ORDERED: POTASSIUM EFFERVESENT TAB 25 MEQ PO ONE (18:45)
[2021-08-07] MEDS: LORazepam 0.5 MG TAB PO PRN (21:54)
[2021-08-07] MEDS: ATORVASTATIN 20 MG TAB PO SCH (21:54)
[2021-08-07 22:00] VITALS: BP 84/51
[2021-08-07] MEDS: TEMAZEPAM 15 MG CAP PO PRN (22:57)
[2021-08-08 02:00] VITALS: BP 99/59
[2021-08-08] MEDS: AMIODARONE HCL 200 MG TAB PO SCH ×2 (02:13→14:30)
[2021-08-08] MEDS: ALBUTEROL SULF 2.5 MG/0.5ML(0.5%) NEB SOLN NEB SCH ×6 (02:35→22:19)
[2021-08-08 05:00] VITALS: BP 100/65
[2021-08-08] MEDS: ENOXAPARIN SOD 60 MG/0.6 ML SYRINGE SC SCH (05:33)
[2021-08-08] MEDS: traMADol HCL 50 MG TAB PO PRN ×3 (05:48→20:51)
[2021-08-08 05:55] LABS: Eosinophils # (auto) 0.1 10 ^3/uL (0-0.8); Lymphocytes # (auto) 0.7 10 ^3/uL (0.4-5.4); Mean Corpuscular Volume 102.1 fL (80.0-100.0); Monocytes # (auto) 0.4 10 ^3/uL (0-1.3); Neutrophils % (auto) 82.7 % (37.0-80.0)
[2021-08-08 06:01] LABS: Basophils # (auto) 0 10 ^3/uL (0-0.2); Basophils % (auto) 0.6 % (0.0-2.0); Eosinophils % (auto) 1.2 % (0.0-7.0); Hematocrit 28.4 % (36.0-46.0); Hemoglobin 9.2 g/dL (12.2-16.2); Lymphocytes % (auto) 10.2 % (10.0-50.0); Mean Corpuscular Hgb Conc. 32.3 g/dL (32.0-36.0); Monocytes % (auto) 5.3 % (0.0-12.0); Nucleated Red Blood Cells % 0.1 %; Red Blood Cells 2.78 10^6/uL (4.0-5.20); Red Cell Distribution Width 17.1 % (11.8-14.3); White Blood Cell 7.2 10^3/uL (4.4-10.8)
[2021-08-08] MEDS: SUCRALFATE 1 GM/10 ML ORAL SUSP PO SCH ×4 (06:32→21:34)
[2021-08-08 08:00] VITALS: BP 111/60
[2021-08-08] MEDS: SILDENAFIL CITRATE 20 MG TAB PO SCH ×3 (08:00→19:50)
[2021-08-08] MEDS: PANTOPRAZOLE 40 MG TAB PO SCH ×2 (10:00→21:34)
[2021-08-08] MEDS ORDERED: POTASSIUM EFFERVESENT TAB 25 MEQ GT ONE (11:30)
[2021-08-08 17:00] VITALS: BP 91/51
[2021-08-08] MEDS: APIXABAN 5 MG TAB PO SCH (21:34)
[2021-08-08] MEDS: ATORVASTATIN 20 MG TAB PO SCH (21:35)
[2021-08-08 22:00] VITALS: BP 89/47
[2021-08-08] MEDS: TEMAZEPAM 15 MG CAP PO PRN (22:22)
[2021-08-08] MEDS: LORazepam 0.5 MG TAB PO PRN (22:22)
[2021-08-09] MEDS: AMIODARONE HCL 200 MG TAB PO SCH ×2 (02:30→16:06)
[2021-08-09] MEDS: ALBUTEROL SULF 2.5 MG/0.5ML(0.5%) NEB SOLN NEB SCH ×6 (02:33→22:29)
[2021-08-09 05:00] VITALS: BP 85/49
[2021-08-09] MEDS: SUCRALFATE 1 GM/10 ML ORAL SUSP PO SCH ×4 (06:16→21:22)
[2021-08-09 06:18] LABS: Basophils # (auto) 0 10 ^3/uL (0-0.2); Hematocrit 26.3 % (36.0-46.0); Red Cell Distribution Width 16.6 % (11.8-14.3)
[2021-08-09 06:21] LABS: Basophils % (auto) 0.4 % (0.0-2.0); Eosinophils # (auto) 0.2 10 ^3/uL (0-0.8); Eosinophils % (auto) 1.9 % (0.0-7.0); Hemoglobin 9.2 g/dL (12.2-16.2); Lymphocytes # (auto) 0.5 10 ^3/uL (0.4-5.4); Lymphocytes % (auto) 6.8 % (10.0-50.0); Mean Corpuscular Hemoglobin 34.7 pg (28.0-32.0); Mean Corpuscular Volume 99.4 fL (80.0-100.0); Monocytes # (auto) 0.3 10 ^3/uL (0-1.3); Monocytes % (auto) 4.2 % (0.0-12.0); Neutrophils # (auto) 6.9 10 ^3/uL (1.6-8.6); Neutrophils % (auto) 86.7 % (37.0-80.0); Red Blood Cells 2.65 10^6/uL (4.0-5.20)
[2021-08-09 06:47] LABS: Potassium 3.8 mmol/L (3.5-5.1)
[2021-08-09 06:51] LABS: BUN/Creatinine Ratio 14.3; Calcium 7.8 mg/dL (8.5-10.1)
[2021-08-09 08:00] VITALS: BP 87/48
[2021-08-09] MEDS: SILDENAFIL CITRATE 20 MG TAB PO SCH ×3 (08:54→19:59)
[2021-08-09] MEDS: PANTOPRAZOLE 40 MG TAB PO SCH ×2 (08:55→21:23)
[2021-08-09] MEDS: APIXABAN 5 MG TAB PO SCH ×2 (08:55→21:23)
[2021-08-09 10:00] VITALS: BP 87/48
[2021-08-09] MEDS: traMADol HCL 50 MG TAB PO PRN ×2 (11:31→18:17)
[2021-08-09 13:00] VITALS: BP 81/49
[2021-08-09 17:00] VITALS: BP 86/49
[2021-08-09] MEDS: ATORVASTATIN 20 MG TAB PO SCH (21:23)
[2021-08-09 21:53] VITALS: BP 114/60
[2021-08-09] MEDS: TEMAZEPAM 15 MG CAP PO PRN (22:29)
[2021-08-10] VITALS (7 sets, daily range): BP systolic 84–94; BP diastolic 45–57
[2021-08-10] MEDS: AMIODARONE HCL 200 MG TAB PO SCH ×2 (02:01→14:30)
[2021-08-10] MEDS: ALBUTEROL SULF 2.5 MG/0.5ML(0.5%) NEB SOLN NEB SCH ×5 (02:10→20:08)
[2021-08-10] MEDS: SUCRALFATE 1 GM/10 ML ORAL SUSP PO SCH ×3 (06:14→17:00)
[2021-08-10 06:25] LABS: Basophils # (auto) 0 10 ^3/uL (0-0.2); Basophils % (auto) 0.2 % (0.0-2.0); Eosinophils # (auto) 0.2 10 ^3/uL (0-0.8); Eosinophils % (auto) 3.3 % (0.0-7.0); Hematocrit 26.8 % (36.0-46.0); Hemoglobin 8.7 g/dL (12.2-16.2); Lymphocytes # (auto) 0.6 10 ^3/uL (0.4-5.4); Mean Corpuscular Hemoglobin 32.3 pg (28.0-32.0); Mean Corpuscular Hgb Conc. 32.5 g/dL (32.0-36.0); Mean Corpuscular Volume 99.3 fL (80.0-100.0); Monocytes # (auto) 0.4 10 ^3/uL (0-1.3); Monocytes % (auto) 6.4 % (0.0-12.0); Neutrophils % (auto) 81.1 % (37.0-80.0); Red Cell Distribution Width 16.4 % (11.8-14.3); White Blood Cell 6.2 10^3/uL (4.4-10.8)
[2021-08-10 06:53] LABS: Potassium 3.4 mmol/L (3.5-5.1)
[2021-08-10 06:59] LABS: BUN/Creatinine Ratio 13.1; Calcium 7.9 mg/dL (8.5-10.1)
[2021-08-10] MEDS: SILDENAFIL CITRATE 20 MG TAB PO SCH ×2 (10:25→15:59)
[2021-08-10] MEDS: APIXABAN 5 MG TAB PO SCH (10:25)
[2021-08-10] MEDS: PANTOPRAZOLE 40 MG TAB PO SCH (10:25)
[2021-08-10] MEDS: traMADol HCL 50 MG TAB PO PRN (10:32)
== END 2021-08-10 20:10 | disposition home health service (06) | DRG 720 ==
LOC: ER 16:01 → TELE 18:32 → TELE-WESTW 07-24 20:23
PROVIDERS: ADMIT Internal Medicine; ATTEND Family Medicine
PROC: 4A023N8 Measurement of Cardiac Sampling and Pressure, Bilateral, Percutaneous Approach (ICD-10-PCS; principal; 2021-07-26)
PROC: B2111ZZ Fluoroscopy of Multiple Coronary Arteries using Low Osmolar Contrast (ICD-10-PCS; 2021-07-26)
PROC: B2151ZZ Fluoroscopy of Left Heart using Low Osmolar Contrast (ICD-10-PCS; 2021-07-26)
PROC: 30233N1 Transfusion of Nonautologous Red Blood Cells into Peripheral Vein, Percutaneous Approach (ICD-10-PCS; 2021-07-31)
DX: A41.9 Sepsis, unspecified organism (principal); J96.01 Acute respiratory failure with hypoxia; I21.4 Non-ST elevation (NSTEMI) myocardial infarction; I27.29 Other secondary pulmonary hypertension; N17.9 Acute kidney failure, unspecified; E44.1 Mild protein-calorie malnutrition; I82.412 Acute embolism and thrombosis of left femoral vein; J18.9 Pneumonia, unspecified organism; E87.1 Hypo-osmolality and hyponatremia; D62 Acute posthemorrhagic anemia; I50.810 Right heart failure, unspecified; K70.10 Alcoholic hepatitis without ascites; E78.5 Hyperlipidemia, unspecified; E87.6 Hypokalemia; N13.9 Obstructive and reflux uropathy, unspecified; Z68.23 Body mass index [BMI] 23.0-23.9, adult; I48.91 Unspecified atrial fibrillation; K74.60 Unspecified cirrhosis of liver; J43.9 Emphysema, unspecified; R79.89 Other specified abnormal findings of blood chemistry; I25.10 Atherosclerotic heart disease of native coronary artery without angina pectoris; N94.89 Other specified conditions associated with female genital organs and menstrual cycle; Z20.822 Contact with and (suspected) exposure to COVID-19; Z79.01 Long term (current) use of anticoagulants; Z79.51 Long term (current) use of inhaled steroids; Z87.891 Personal history of nicotine dependence; Z88.0 Allergy status to penicillin; Z90.710 Acquired absence of both cervix and uterus; Z88.5 Allergy status to narcotic agent; Z87.19 Personal history of other diseases of the digestive system
CPT/HCPCS: 36415; 36600; 71045; 71260; 74176; 74177; 76775; 80048; 80053; 80061; 82150; 82270; 82550; 82805; 83605; 83690; 83735; 83880; 84132; 84484; 85007; 85014; 85018; 85025; 85027; 85379; 85610; 85652; 85730; 86141; 86850; 86900; 86901; 86920; 87040; 87081; 87426; 87493; 93005; 93306; 93458; 93926; 93970; 93971; 94640; 96365; 99152; 99153; C1751; G0378; J0696; J1100; J1956; J2250; J3480; J3490; P9047

== ENCOUNTER → 2021-11-01 | Outpatient (CLI) | payer MEDICAID ==
[~2021-11-01] MED LIST: ALBUTEROL SULF 2.5 MG/0.5ML(0.5%) NEB SOLN ONE; AMIT10TA8 PO; FLUT250M2 IN
== END | disposition home or self-care (01) ==
LOC: RT 10:46
PROVIDERS: ATTEND Internal Medicine Pulmonary Disease
DX: J44.9 Chronic obstructive pulmonary disease, unspecified (principal); Z20.822 Contact with and (suspected) exposure to COVID-19
CPT/HCPCS: 36415; 87426; 94060; 94727; 94729